=== PATIENT | female | born 1935 | race Two or more races ===

== ENCOUNTER 2022-09-28 15:32 | Inpatient (IN) | payer OTHER ==
[~2022-09-28] VITALS: Ht 152.4 cm; Wt 64.0 kg
[2022-10-05] MEDS ORDERED: PRAVASTATIN SOD40 MG PO (08:35)
[2022-10-05] MEDS ORDERED: MICARDIS40 MG PO (08:44)
[2022-10-10] MEDS ORDERED: NORVASC2.5 MG (08:37)
[2022-10-10] MEDS ORDERED: TELMISARTAN80 MG (08:37)
[2022-10-12] MEDS ORDERED: GABAPENTIN100 MG PO (13:15)
[2022-10-12] MEDS ORDERED: NORFLEX100MG PO (13:15)
[2022-10-12] MEDS ORDERED: OXYC1TAB9 PO (13:16)
[2022-10-12] MEDS ORDERED: XARELTO10 MG PO (13:17)
== END 2022-10-12 14:44 | DRG 470 ==
LOC: O/R 10-10 05:30 → SURG 10-10 05:30 → SURH 10-10 08:00 → SURG 10-10 10:35
PROVIDERS: ADMIT Orthopaedic Surgery; ATTEND Orthopaedic Surgery
PROC: 0SRC0J9 Replacement of Right Knee Joint with Synthetic Substitute, Cemented, Open Approach (ICD-10-PCS; principal; 2022-10-10 10:15)
DX: M17.11 Unilateral primary osteoarthritis, right knee (principal); D62 Acute posthemorrhagic anemia; M85.661 Other cyst of bone, right lower leg; I10 Essential (primary) hypertension; E78.5 Hyperlipidemia, unspecified; Z96.651 Presence of right artificial knee joint

== ENCOUNTER 2023-12-07 12:03 | Emergency (ER) | payer OTHER ==
[~2023-12-07] VITALS: Ht 152.4 cm; Wt 64.4 kg
[~2023-12-07 12:03] MED LIST: GABAPENTIN100 MG PO; MICARDIS40 MG PO; NORFLEX100MG PO; NORVASC2.5 MG; OXYC1TAB9 PO; PRAVASTATIN SOD40 MG PO; TELMISARTAN80 MG; XARELTO10 MG PO
[2023-12-07] MEDS ORDERED: HYOSCYAMINE SULFATE 0.125 MG TAB.SUBL SL STA (13:19)
[2023-12-07 13:43] LABS: HEMATOCRIT 36.6 % (36.0-45.00); HEMOGLOBIN 12.2 g/dL (12.0-15.00); MEAN CELL VOLUME 82.7 fL (80.00-100.00); MEAN CORPUSCULAR HEMOGLOBIN 27.5 pg (27.00-32.0); MEAN CORPUSCULAR HGB CONC 33.3 g/dl (32.0-36.0); PLATELET COUNT 228 K/uL (150-450); RED BLOOD COUNT 4.43 M/uL (4.00-6.00); RED CELL DISTRIBUTION WIDTH 14.1 % (11.5-14.5)
[2023-12-07 14:09] LABS: URINE APPEARANCE Cloudy; URINE BILIRRUBIN Negative (NEGATIVE); URINE BLOOD Trace; URINE COLOR Yellow; URINE GLUCOSE Negative (NEGATIVE); URINE KETONE Negative (NEGATIVE); URINE LEUKOCYTE Moderate; URINE NITRATE Negative; URINE PROTEIN Trace (NEGATIVE); URINE UROBILINOGEN 0.2 E.U./dl
[2023-12-07 14:13] LABS: ALBUMIN 3.9 gm/dL (3.4-5.0); BILIRUBIN TOTAL 0.44 mg/dL (0.3-1.2); BILIRUBIN,CONJUGATED 0.16 mg/dL (0.0-0.2); BILIRUBIN,UNCONJUGATED 0.28 mg/dL (0.0-0.6); CALCIUM 9.7 mg/dL (8.5-10.1); CREATININE SERUM 1.31 mg/dL (0.55-1.02); GFR 38.49; POTASSIUM 4.83 mEq/L (3.5-5.1); TOTAL PROTEIN 7.7 gm/dL (6.4-8.2)
[2023-12-07 14:13] LABS: URINE BACTERIA 2411.5 uL (0.0-1933); URINE EPITHELIAL CELLS 71.4 uL (0.0-38.8); URINE RBC 3.1 uL (0.0-20.8); URINE WBC 198.6 uL (0.0-23.2)
[2023-12-07 14:28] LABS: URINE CAST 0.28 uL (0.0-1.40)
== END 2023-12-07 16:27 | disposition home or self-care (01) ==
LOC: ER 12:03
PROVIDERS: General Practice
DX: R10.9 Unspecified abdominal pain (principal); Z91.041 Radiographic dye allergy status; Z88.8 Allergy status to other drugs, medicaments and biological substances; E11.9 Type 2 diabetes mellitus without complications; I10 Essential (primary) hypertension

== ENCOUNTER 2024-05-01 14:27 | Inpatient (IN) | payer OTHER ==
[~2024-05-01] VITALS: Ht 152.4 cm; Wt 63.0 kg
--- NOTE | 2024-05-01 14:34 | NUR ---
PACIENTE FEMENINA ALERTA Y ORIENTADA X3, REFIERE DOLOR ABDOMINAL Y EL EILEEN DE HOY 7 VOMITOS.
[2024-05-01] MEDS ORDERED: ONDANSETRON HCL 2 MG/ML VIAL IV ONE (15:15)
[2024-05-01] MEDS ORDERED: 0.9 % SODIUM CHLORIDE 500 ML IV ONE (15:15)
[2024-05-01] MEDS ORDERED: FAMOTIDINE/PF 20 MG/2 ML VIAL IV ONE (15:15)
--- NOTE | 2024-05-01 16:16 | NUR ---
PTE ALERTA Y ORIENTADA X3. GALINA GARCIA EDUCA A PTE SOBRE TRATAMIENTO MEDICO Y CHARLES DE MUESTRAS ORDENADAS POR MD, PTE REFIERE ENTENDER. SE REALIZA CHARLES DE MUESTRAS Y ADMINISTRACION DE MEDICAMENTOS BAJO MEDIDAS ASEPTICAS.
[2024-05-01 16:42] LABS: HEMOGLOBIN 11.5 g/dL (12.0-15.00); MEAN CELL VOLUME 85.1 fL (80.00-100.00); MEAN CORPUSCULAR HEMOGLOBIN 28.1 pg (27.00-32.0); PLATELET COUNT 251 K/uL (150-450); RED BLOOD COUNT 4.11 M/uL (4.00-6.00); RED CELL DISTRIBUTION WIDTH 14.1 % (11.5-14.5)
[2024-05-01 16:51] LABS: URINE APPEARANCE Clear; URINE BILIRRUBIN Negative (NEGATIVE); URINE BLOOD Small; URINE COLOR Yellow; URINE GLUCOSE Negative (NEGATIVE); URINE KETONE Negative (NEGATIVE); URINE LEUKOCYTE Moderate; URINE NITRATE Negative; URINE PROTEIN 30 (NEGATIVE); URINE UROBILINOGEN 0.2 E.U./dl
[2024-05-01 16:53] LABS: URINE BACTERIA 217.9 uL (0.0-1933); URINE EPITHELIAL CELLS 20.2 uL (0.0-38.8); URINE WBC 568.9 uL (0.0-23.2)
[2024-05-01 17:12] LABS: ALBUMIN 3.7 gm/dL (3.4-5.0); BILIRUBIN TOTAL 0.5 mg/dL (0.3-1.2); CALCIUM 9.5 mg/dL (8.5-10.1); CREATININE SERUM 1.71 mg/dL (0.55-1.02); GFR 28.24; GLOBULINA 4.1 G/DL (2.4-3.5); POTASSIUM 4.85 mEq/L (3.5-5.1); TOTAL PROTEIN 7.8 gm/dL (6.4-8.2)
[2024-05-01] MEDS ORDERED: CEFTRIAXONE SODIUM 2,000 MG in 0.9 % SODIUM CHLORIDE 100 ML IV SCH (18:52)
[2024-05-01] MEDS ORDERED: TAMSULOSIN HCL 0.4 MG CAP PO SCH (18:52)
[2024-05-01] MEDS ORDERED: ACETAMINOPHEN 500 MG GEL..CAP PO PRN (19:00)
[2024-05-01] MEDS ORDERED: 0.9 % SODIUM CHLORIDE 1,000 ML IV SCH (19:00)
[2024-05-01] MEDS ORDERED: KETOROLAC TROMETHAMINE 15 MG VIAL IU ONE (19:00)
[2024-05-01 21:01] LABS: INR 1.04; PARTIAL THROMBOPLASTIN TIME 28.8 SECONDS (22.0-34.0); PROTHROMBIN TIME 11.3 SECONDS (9.0-11.5)
[2024-05-01 21:02] LABS: MAGNESIUM 2.5 mg/dL (1.8-2.4); PHOSPHOROUS 2.9 mg/dL (2.5-4.9)
[2024-05-01 21:11] VITALS: BP 133/69; O2SAT 97
[2024-05-01 21:19] VITALS: BP 133/69
[2024-05-01 22:23] VITALS: BP 136/74; O2SAT 100
[2024-05-02 00:56] VITALS: BP 103/63; O2SAT 95
[2024-05-02 08:57] VITALS: BP 136/76; O2SAT 98
[2024-05-02] MEDS ORDERED: GABAPENTIN 100 MG CAPSULE PO SCH (09:00)
[2024-05-02] MEDS ORDERED: AMLODIPINE BESYLATE 5 MG TABLET PO SCH (09:00)
[2024-05-02 10:35] LABS: CALCIUM 9.1 mg/dL (8.5-10.1); CREATININE SERUM 1.73 mg/dL (0.55-1.02); GFR 27.86; POTASSIUM 4.91 mEq/L (3.5-5.1)
[2024-05-02] MEDS ORDERED: LACTOBACILLUS ACIDOPHILUS 1 CAP CAP PO SCH (17:00)
[2024-05-02] MEDS ORDERED: SIMVASTATIN 20 MG TABLET PO SCH (17:00)
[2024-05-02 17:35] VITALS: BP 123/67; O2SAT 98
[2024-05-02] MEDS ORDERED: IRON FUM,PS/FOLIC/BCOMP,C NO.9 1 CAP CAPSULE PO SCH (18:16)
[2024-05-03 00:35] VITALS: BP 160/70
[2024-05-03 08:50] VITALS: BP 120/67; O2SAT 99
[2024-05-03 17:14] VITALS: BP 121/71; O2SAT 96
[2024-05-04 00:57] VITALS: BP 134/86
[2024-05-04 08:31] VITALS: BP 125/70; O2SAT 98
[2024-05-04] MEDS ORDERED: TRAMADOL HCL 50 MG TABLET PO SCH (17:00)
[2024-05-04 17:11] VITALS: BP 125/70; O2SAT 96
[2024-05-04 19:17] LABS: BILIRUBIN TOTAL 0.35 mg/dL (0.3-1.2); CALCIUM 8.7 mg/dL (8.5-10.1); CREATININE SERUM 1.49 mg/dL (0.55-1.02); GFR 33.1; GLOBULINA 3.3 G/DL (2.4-3.5); POTASSIUM 4.35 mEq/L (3.5-5.1); TOTAL PROTEIN 6.3 gm/dL (6.4-8.2)
[2024-05-05 01:07] VITALS: BP 133/71
[2024-05-05 06:14] LABS: HEMATOCRIT 26.4 % (36.0-45.00); MEAN CELL VOLUME 85.6 fL (80.00-100.00); MEAN CORPUSCULAR HEMOGLOBIN 28.4 pg (27.00-32.0); MEAN CORPUSCULAR HGB CONC 33.1 g/dl (32.0-36.0); PLATELET COUNT 190 K/uL (150-450); RED BLOOD COUNT 3.09 M/uL (4.00-6.00); RED CELL DISTRIBUTION WIDTH 14.1 % (11.5-14.5)
[2024-05-05 06:29] LABS: HEMOGLOBIN 8.8 g/dL (12.0-15.00)
[2024-05-05 06:46] LABS: ALBUMIN 2.1 gm/dL (3.4-5.0); BILIRUBIN TOTAL 0.23 mg/dL (0.3-1.2); CALCIUM 6.6 mg/dL (8.5-10.1); CREATININE SERUM 1.58 mg/dL (0.55-1.02); GFR 30.94; GLOBULINA 2.3 G/DL (2.4-3.5); POTASSIUM 4.32 mEq/L (3.5-5.1); TOTAL PROTEIN 4.4 gm/dL (6.4-8.2)
[2024-05-05 08:14] VITALS: BP 133/65; O2SAT 97
[2024-05-05] MEDS ORDERED: ENOXAPARIN SODIUM 30 MG/0.3 ML SYRINGE SUBCUTANEO SCH (09:00)
[2024-05-05] MEDS ORDERED: SODIUM CHLORIDE 0.45 % 1,000 ML IV SCH (09:45)
[2024-05-05 17:00] VITALS: BP 121/61
[2024-05-05] MEDS ORDERED: BENZONATATE 100 MG CAPSULE PO SCH (17:00)
[2024-05-05] MEDS ORDERED: FLUTICASONE PROPIONATE 50 MCG SPRAY NASAL SCH (21:00)
[2024-05-05] MEDS ORDERED: LORATADINE 10 MG TABLET PO SCH (21:00)
[2024-05-06 00:32] VITALS: BP 130/71; O2SAT 96
[2024-05-06 08:08] LABS: HEMATOCRIT 29.9 % (36.0-45.00); HEMOGLOBIN 9.9 g/dL (12.0-15.00); MEAN CORPUSCULAR HEMOGLOBIN 28.1 pg (27.00-32.0); PLATELET COUNT 205 K/uL (150-450); RED BLOOD COUNT 3.52 M/uL (4.00-6.00); RED CELL DISTRIBUTION WIDTH 14.6 % (11.5-14.5)
[2024-05-06 08:10] VITALS: BP 155/80; O2SAT 97
[2024-05-06] MEDS ORDERED: FOLIC ACID 1 MG TABLET PO SCH (09:00)
[2024-05-06] MEDS ORDERED: TAMSULOSIN HCL 0.4 MG CAP PO SCH (09:00)
[2024-05-06 09:08] LABS: ALBUMIN 2.5 gm/dL (3.4-5.0); BILIRUBIN TOTAL 0.21 mg/dL (0.3-1.2); CALCIUM 8.4 mg/dL (8.5-10.1); POTASSIUM 5.19 mEq/L (3.5-5.1); TOTAL PROTEIN 5.5 gm/dL (6.4-8.2)
[2024-05-06 09:33] LABS: GFR 9.8
[2024-05-06 09:34] LABS: CREATININE SERUM 4.28 mg/dL (0.55-1.02)
[2024-05-06 16:26] VITALS: BP 151/76
[2024-05-07 01:18] VITALS: BP 122/67; O2SAT 96
[2024-05-07 08:44] LABS: HEMATOCRIT 30.2 % (36.0-45.00); HEMOGLOBIN 9.8 g/dL (12.0-15.00); MEAN CORPUSCULAR HEMOGLOBIN 27.8 pg (27.00-32.0); MEAN CORPUSCULAR HGB CONC 32.4 g/dl (32.0-36.0); PLATELET COUNT 189 K/uL (150-450); RED BLOOD COUNT 3.52 M/uL (4.00-6.00); RED CELL DISTRIBUTION WIDTH 14.2 % (11.5-14.5)
[2024-05-07 08:55] VITALS: BP 153/77; O2SAT 99
[2024-05-07 09:26] LABS: ALBUMIN 2.6 gm/dL (3.4-5.0); BILIRUBIN TOTAL 0.24 mg/dL (0.3-1.2); CALCIUM 8.3 mg/dL (8.5-10.1); POTASSIUM 5.3 mEq/L (3.5-5.1); TOTAL PROTEIN 5.6 gm/dL (6.4-8.2)
[2024-05-07 09:44] LABS: C-REACTIVE PROTEIN 7.62 MG/DL (0.00-0.29); GFR 6.25
[2024-05-07 09:45] LABS: CREATININE SERUM 6.32 mg/dL (0.55-1.02)
[2024-05-07] MEDS ORDERED: LEVALBUTEROL HCL 0.63 MG/3 ML SOLUTION IH STA (13:14)
[2024-05-07] MEDS ORDERED: LEVALBUTEROL HCL 0.63 MG/3 ML SOLUTION IH SCH (17:00)
[2024-05-07 22:05] VITALS: BP 162/83
[2024-05-07 23:11] LABS: PH,URINE 5.5 (5.0-8.0); URINE APPEARANCE Clear; URINE BILIRRUBIN Negative (NEGATIVE); URINE BLOOD Large; URINE COLOR Orange; URINE GLUCOSE Negative (NEGATIVE); URINE KETONE Trace (NEGATIVE); URINE LEUKOCYTE Small; URINE NITRATE Negative; URINE UROBILINOGEN 0.2 E.U./dl
[2024-05-07 23:16] LABS: URINE BACTERIA 79.3 uL (0.0-1933); URINE EPITHELIAL CELLS 13.6 uL (0.0-38.8); URINE RBC 108.8 uL (0.0-20.8); URINE WBC 32.1 uL (0.0-23.2)
[2024-05-07 23:20] LABS: URINE CAST 0.91 uL (0.0-1.40); URINE PROTEIN 100 (NEGATIVE)
[2024-05-08 02:53] VITALS: BP 125/72; O2SAT 98
[2024-05-08 06:23] LABS: HEMATOCRIT 28.2 % (36.0-45.00); HEMOGLOBIN 9.3 g/dL (12.0-15.00); MEAN CELL VOLUME 84.6 fL (80.00-100.00); MEAN CORPUSCULAR HEMOGLOBIN 27.9 pg (27.00-32.0); PLATELET COUNT 226 K/uL (150-450); RED BLOOD COUNT 3.33 M/uL (4.00-6.00); RED CELL DISTRIBUTION WIDTH 14.3 % (11.5-14.5)
[2024-05-08 06:45] LABS: ALBUMIN 2.4 gm/dL (3.4-5.0); CALCIUM 8.4 mg/dL (8.5-10.1); MAGNESIUM 2.1 mg/dL (1.8-2.4); PHOSPHOROUS 4.1 mg/dL (2.5-4.9); POTASSIUM 5.19 mEq/L (3.5-5.1)
[2024-05-08 06:47] LABS: GFR 10.81
[2024-05-08 06:48] LABS: CREATININE SERUM 3.93 mg/dL (0.55-1.02)
[2024-05-08 08:33] VITALS: BP 131/69
[2024-05-08] MEDS ORDERED: IPRATROPIUM BROMIDE 0.5 MG/2.5 ML AMPUL.NEB IH SCH (12:00)
[2024-05-08] MEDS ORDERED: METHYLPREDNISOLONE SOD SUCC 40 MG VIAL IV SCH (13:00)
[2024-05-08 18:11] VITALS: BP 144/76; O2SAT 97
[2024-05-08] MEDS ORDERED: ACETAMINOPHEN 500 MG GEL..CAP PO PRN (22:00)
[2024-05-09 01:30] VITALS: BP 133/77; O2SAT 94
[2024-05-09 06:47] LABS: ALBUMIN 2.7 gm/dL (3.4-5.0); CALCIUM 8.5 mg/dL (8.5-10.1); CREATININE SERUM 1.84 mg/dL (0.55-1.02); GFR 25.95; PHOSPHOROUS 2.6 mg/dL (2.5-4.9); POTASSIUM 4.82 mEq/L (3.5-5.1)
[2024-05-09 08:36] VITALS: BP 131/67
[2024-05-09 16:11] VITALS: BP 126/64
[2024-05-10 01:33] VITALS: BP 145/71; O2SAT 96
[2024-05-10 05:40] LABS: HEMATOCRIT 28.6 % (36.0-45.00); MEAN CELL VOLUME 83.7 fL (80.00-100.00); MEAN CORPUSCULAR HEMOGLOBIN 27.7 pg (27.00-32.0); MEAN CORPUSCULAR HGB CONC 33.1 g/dl (32.0-36.0); PLATELET COUNT 300 K/uL (150-450); RED BLOOD COUNT 3.42 M/uL (4.00-6.00); RED CELL DISTRIBUTION WIDTH 14.7 % (11.5-14.5)
[2024-05-10 06:27] LABS: ALBUMIN 2.8 gm/dL (3.4-5.0); BILIRUBIN TOTAL 0.25 mg/dL (0.3-1.2); CALCIUM 8.6 mg/dL (8.5-10.1); CREATININE SERUM 1.53 mg/dL (0.55-1.02); GFR 32.11; GLOBULINA 3.2 G/DL (2.4-3.5); POTASSIUM 5.15 mEq/L (3.5-5.1)
[2024-05-10 06:33] LABS: HEMOGLOBIN 9.5 g/dL (12.0-15.00)
[2024-05-10 08:52] VITALS: BP 144/75; O2SAT 97
[2024-05-10 14:00] VITALS: BP 138/72; O2SAT 92
[2024-05-10] MEDS ORDERED: LEVALBUTEROL HCL 0.63 MG/3 ML SOLUTION IH SCH (17:00)
[2024-05-11 01:36] VITALS: BP 116/54; O2SAT 97
[2024-05-11 10:59] VITALS: BP 154/75; O2SAT 98
[2024-05-11 17:14] VITALS: BP 151/72
[2024-05-12 01:27] VITALS: BP 130/60; O2SAT 97
[2024-05-12 06:36] LABS: HEMATOCRIT 29.7 % (36.0-45.00); HEMOGLOBIN 9.9 g/dL (12.0-15.00); MEAN CELL VOLUME 83.5 fL (80.00-100.00); MEAN CORPUSCULAR HEMOGLOBIN 27.8 pg (27.00-32.0); MEAN CORPUSCULAR HGB CONC 33.3 g/dl (32.0-36.0); PLATELET COUNT 345 K/uL (150-450); RED BLOOD COUNT 3.56 M/uL (4.00-6.00); RED CELL DISTRIBUTION WIDTH 14.7 % (11.5-14.5)
[2024-05-12 06:52] LABS: ERYTHROCYTE SEDIMENTATION RATE 17 mm/hr
[2024-05-12 07:23] LABS: CALCIUM 8.4 mg/dL (8.5-10.1); CREATININE SERUM 1.3 mg/dL (0.55-1.02); GFR 38.75; PHOSPHOROUS 2.8 mg/dL (2.5-4.9); POTASSIUM 4.34 mEq/L (3.5-5.1)
[2024-05-12 07:30] LABS: C-REACTIVE PROTEIN 1.07 MG/DL (0.00-0.29)
[2024-05-12 08:32] VITALS: BP 155/65
[2024-05-12 16:57] VITALS: BP 177/74
[2024-05-12] MEDS ORDERED: METHYLPREDNISOLONE SOD SUCC 40 MG VIAL IV SCH (21:00)
[2024-05-12 22:57] LABS: ABG PH 7.449 (7.35-7.45); ABG PO2 71.5 mmHg (80-100); ABG pCO2 33.7 mmHg (35-45); BASE EXCESS -0.4 mmol/l; BICARBONATE 22.8 mmol/l (23-25); SaO2 94.9 %; Tco2 23.9 mmol/l
[2024-05-12 22:58] LABS: allen test SATISFACTORY
[2024-05-12 23:10] LABS: puncture site BRADIAL RIGHT
[2024-05-12 23:11] LABS: o2 21 %
[2024-05-12 23:45] VITALS: BP 131/63; O2SAT 97
[2024-05-13 08:00] VITALS: BP 141/81
[2024-05-13] MEDS ORDERED: AMLODIPINE BESYL5 MG PO (16:07)
[2024-05-13] MEDS ORDERED: TAMS0.4C PO (16:07)
[2024-05-13] MEDS ORDERED: INTEGRA PLUS C1 EACH PO (16:07)
[2024-05-13] MEDS ORDERED: LEVALBUTER0.31 MG/3 IH (16:07)
[2024-05-13] MEDS ORDERED: SYMBICORT 16010.2 GM IH (16:07)
[2024-05-13] MEDS ORDERED: IPRATROPIU0.2 MG/1 M IH (16:07)
[2024-05-13 18:14] VITALS: BP 160/80; O2SAT 98
== END 2024-05-13 21:40 | disposition home or self-care (01) | DRG 660 ==
LOC: ER 14:29 → MEDJ 20:00
PROVIDERS: General Practice; Internal Medicine; Internal Medicine Geriatric Medicine; Internal Medicine Nephrology; Nurse Practitioner Family; Urology; ADMIT Internal Medicine; ATTEND Internal Medicine
PROC: BW21ZZZ Computerized Tomography (CT Scan) of Abdomen and Pelvis (ICD-10-PCS; 2024-05-01)
PROC: BW30YZZ Magnetic Resonance Imaging (MRI) of Abdomen using Other Contrast (ICD-10-PCS; 2024-05-06)
PROC: BW21ZZZ Computerized Tomography (CT Scan) of Abdomen and Pelvis (ICD-10-PCS; 2024-05-06)
PROC: 0T788DZ Dilation of Bilateral Ureters with Intraluminal Device, Via Natural or Artificial Opening Endoscopic (ICD-10-PCS; principal; 2024-05-07 13:00)
DX: N39.0 Urinary tract infection, site not specified (principal); J45.901 Unspecified asthma with (acute) exacerbation; N17.9 Acute kidney failure, unspecified; N13.8 Other obstructive and reflux uropathy; N13.2 Hydronephrosis with renal and ureteral calculous obstruction; E78.5 Hyperlipidemia, unspecified; I12.9 Hypertensive chronic kidney disease with stage 1 through stage 4 chronic kidney disease, or unspecified chronic kidney disease; N18.30 Chronic kidney disease, stage 3 unspecified; D63.1 Anemia in chronic kidney disease
CPT/HCPCS: 74182

== ENCOUNTER 2024-05-21 11:57 | Inpatient (IN) | payer OTHER ==
[~2024-05-21] VITALS: Ht 152.4 cm; Wt 61.7 kg
[~2024-05-21 11:57] MED LIST changes: +AMLODIPINE BESYL5 MG PO; +INTEGRA PLUS C1 EACH PO; +IPRATROPIU0.2 MG/1 M IH; +LEVALBUTER0.31 MG/3 IH; +SYMBICORT 16010.2 GM IH; +TAMS0.4C PO
--- NOTE | 2024-05-21 12:33 | NUR ---
PTE ALERTA Y ORIENTADA X3 REFEIRE DOLOR EN AMBOS FLANCOS, EPSCIALMENTE EN EL LADO DERECHO. PTE TIENE DOUBLE J OPERADA POR DR ANGELA. SE LE THOMPSON S/V Y SE UBICA
[2024-05-21] MEDS ORDERED: 0.9 % SODIUM CHLORIDE 1,000 ML IV STA (13:37)
[2024-05-21] MEDS ORDERED: KETOROLAC TROMETHAMINE 60 MG VIAL IM STA (13:38)
--- NOTE | 2024-05-21 13:55 | NUR ---
PTE EVALUADA POR EL DR. CHUN. GALINA POSEYA, CHARLES MUESTRAS DE LAB Y ADMINISTRA MEDICAMENTO SERGIO ORDEN MEDICA BAJO MEDIDAS ASEPTICAS. SE NOTIFICA CT PENDINTE.
[2024-05-21 14:15] LABS: PH,URINE 5.5 (5.0-8.0); URINE APPEARANCE Cloudy; URINE BILIRRUBIN Negative (NEGATIVE); URINE BLOOD Large; URINE COLOR Yellow; URINE GLUCOSE Negative (NEGATIVE); URINE KETONE Negative (NEGATIVE); URINE LEUKOCYTE Moderate; URINE NITRATE Negative; URINE UROBILINOGEN 0.2 E.U./dl
[2024-05-21 14:16] LABS: URINE BACTERIA 2049.9 uL (0.0-1933); URINE EPITHELIAL CELLS 39.1 uL (0.0-38.8); URINE RBC 507.6 uL (0.0-20.8); URINE WBC 201.2 uL (0.0-23.2)
[2024-05-21 14:26] LABS: HEMATOCRIT 34.2 % (36.0-45.00); HEMOGLOBIN 11.2 g/dL (12.0-15.00); MEAN CELL VOLUME 83.8 fL (80.00-100.00); MEAN CORPUSCULAR HEMOGLOBIN 27.5 pg (27.00-32.0); MEAN CORPUSCULAR HGB CONC 32.8 g/dl (32.0-36.0); PLATELET COUNT 259 K/uL (150-450); RED BLOOD COUNT 4.08 M/uL (4.00-6.00); RED CELL DISTRIBUTION WIDTH 16.1 % (11.5-14.5)
[2024-05-21 14:47] LABS: ALBUMIN 3.6 gm/dL (3.4-5.0); BILIRUBIN TOTAL 0.46 mg/dL (0.3-1.2); BILIRUBIN,CONJUGATED 0.14 mg/dL (0.0-0.2); BILIRUBIN,UNCONJUGATED 0.32 mg/dL (0.0-0.6); CALCIUM 9.1 mg/dL (8.5-10.1); CREATININE SERUM 1.81 mg/dL (0.55-1.02); GFR 26.45; POTASSIUM 4.2 mEq/L (3.5-5.1); TOTAL PROTEIN 7.8 gm/dL (6.4-8.2)
[2024-05-21 14:47] LABS: URINE PROTEIN 100 (NEGATIVE)
[2024-05-21] MEDS ORDERED: CEFTRIAXONE SODIUM 1,000 MG VIAL IV STA (15:56)
[2024-05-21] MEDS ORDERED: PROMETHAZINE HCL 25 MG/ML AMPUL IM ONE (20:00)
[2024-05-21] MEDS ORDERED: MEPERIDINE HCL/PF 25 MG/ML VIAL IM ONE (20:00)
[2024-05-21] MEDS ORDERED: 0.9 % SODIUM CHLORIDE 1,000 ML IV SCH (20:15)
[2024-05-21] MEDS ORDERED: MORPHINE SULFATE 2 MG/ML CARTRIDGE IV PRN (20:30)
[2024-05-21] MEDS ORDERED: ACETAMINOPHEN 500 MG GEL..CAP PO PRN (20:30)
[2024-05-21 21:19] LABS: INR 1.01; PARTIAL THROMBOPLASTIN TIME 28.7 SECONDS (22.0-34.0)
[2024-05-21 23:00] VITALS: BP 128/72; O2SAT 96
[2024-05-22 05:55] VITALS: BP 146/75; O2SAT 98
[2024-05-22] MEDS ORDERED: CEFTRIAXONE SODIUM 2,000 MG in 0.9 % SODIUM CHLORIDE 100 ML IV SCH (09:00)
[2024-05-22] MEDS ORDERED: AMLODIPINE BESYLATE 5 MG TABLET PO SCH (09:00)
[2024-05-22] MEDS ORDERED: IRON FUM,PS/FOLIC/BCOMP,C NO.9 1 CAP CAPSULE PO SCH (09:00)
[2024-05-22] MEDS ORDERED: TAMSULOSIN HCL 0.4 MG CAP PO SCH (09:00)
[2024-05-22 09:18] VITALS: BP 143/80
[2024-05-22] MEDS ORDERED: MEROPENEM 500 MG/VIAL VIAL IV NR (14:00)
[2024-05-22] MEDS ORDERED: LACTOBACILLUS ACIDOPHILUS 1 CAP CAP PO SCH (17:00)
[2024-05-22 18:19] VITALS: BP 150/84; O2SAT 96
[2024-05-22] MEDS ORDERED: MEROPENEM 500 MG/VIAL VIAL IV SCH (21:00)
[2024-05-23 01:56] VITALS: BP 134/64
[2024-05-23 08:00] VITALS: BP 145/75; O2SAT 96
[2024-05-23] MEDS ORDERED: TRAMADOL HCL 50 MG TABLET PO STA (10:33)
[2024-05-23] MEDS ORDERED: KETOROLAC TROMETHAMINE 60 MG VIAL IM ONE (10:45)
[2024-05-23] MEDS ORDERED: LEVALBUTEROL HCL 0.63 MG/3 ML SOLUTION IH SCH (13:00)
[2024-05-23 16:47] LABS: ALBUMIN 2.9 gm/dL (3.4-5.0); BILIRUBIN TOTAL 0.3 mg/dL (0.3-1.2); CALCIUM 8.6 mg/dL (8.5-10.1); CREATININE SERUM 1.96 mg/dL (0.55-1.02); GFR 24.12; GLOBULINA 2.9 G/DL (2.4-3.5); POTASSIUM 4.88 mEq/L (3.5-5.1); TOTAL PROTEIN 5.8 gm/dL (6.4-8.2)
[2024-05-23] MEDS ORDERED: BUDESONIDE 0.5 MG/2 ML AMPUL.NEB IH SCH (17:00)
[2024-05-23] MEDS ORDERED: TRAMADOL HCL 50 MG TABLET PO PRN (18:30)
[2024-05-23 20:16] VITALS: BP 104/54
[2024-05-24 00:32] VITALS: BP 145/78; O2SAT 98
[2024-05-24 09:04] LABS: ALBUMIN 2.7 gm/dL (3.4-5.0); BILIRUBIN TOTAL 0.3 mg/dL (0.3-1.2); CALCIUM 8.3 mg/dL (8.5-10.1); CREATININE SERUM 2.19 mg/dL (0.55-1.02); GFR 21.22; GLOBULINA 2.6 G/DL (2.4-3.5); POTASSIUM 4.8 mEq/L (3.5-5.1); TOTAL PROTEIN 5.3 gm/dL (6.4-8.2)
[2024-05-24] MEDS ORDERED: SODIUM CHLORIDE 0.45 % 1,000 ML IV SCH (09:15)
[2024-05-24] MEDS ORDERED: MORPHINE SULFATE 4 MG/ML CARTRIDGE IV PRN (09:15)
[2024-05-24 09:41] VITALS: BP 152/72
[2024-05-24] MEDS ORDERED: PIPERACILLIN/TAZOBACTAM SODIUM 3.375 GM VIAL IV SCH (12:00)
[2024-05-24 16:48] VITALS: BP 146/77
[2024-05-24] MEDS ORDERED: ORPHENADRINE CITRATE 100 MG TABLET PO SCH (17:00)
[2024-05-24] MEDS ORDERED: PIPERACILLIN/TAZOBACTAM SODIUM 2.25 GM VIAL IV SCH (18:00)
[2024-05-25 03:28] VITALS: BP 132/71; O2SAT 99
[2024-05-25 09:05] VITALS: BP 139/77
[2024-05-25 16:59] VITALS: BP 138/79
[2024-05-26 02:36] VITALS: BP 140/80; O2SAT 94
[2024-05-26 07:04] LABS: HEMATOCRIT 27.2 % (36.0-45.00); MEAN CELL VOLUME 84.3 fL (80.00-100.00); MEAN CORPUSCULAR HGB CONC 32.8 g/dl (32.0-36.0); RED BLOOD COUNT 3.22 M/uL (4.00-6.00); RED CELL DISTRIBUTION WIDTH 15.6 % (11.5-14.5)
[2024-05-26 07:09] LABS: ALBUMIN 2.9 gm/dL (3.4-5.0); BILIRUBIN TOTAL 0.84 mg/dL (0.3-1.2); CALCIUM 8.2 mg/dL (8.5-10.1); GFR 14.76; GLOBULINA 2.6 G/DL (2.4-3.5); TOTAL PROTEIN 5.5 gm/dL (6.4-8.2)
[2024-05-26 07:15] LABS: C-REACTIVE PROTEIN 4.86 MG/DL (0.00-0.29); MEAN CORPUSCULAR HEMOGLOBIN 27.6 pg (27.00-32.0); POTASSIUM 5.5 mEq/L (3.5-5.1)
[2024-05-26 07:16] LABS: HEMOGLOBIN 8.9 g/dL (12.0-15.00); PLATELET COUNT 129 K/uL (150-450)
[2024-05-26 07:30] LABS: ERYTHROCYTE SEDIMENTATION RATE 72 mm/hr
[2024-05-26 11:00] VITALS: BP 134/73; O2SAT 98
[2024-05-26] MEDS ORDERED: SOD FERRIC GLUC COMPLX/SUCROSE 62.5 MG/5 ML AMPUL IV NR (13:00)
[2024-05-26] MEDS ORDERED: PANTOPRAZOLE SODIUM 40 MG/VIAL VIAL IV NR (13:00)
[2024-05-26] MEDS ORDERED: ONDANSETRON HCL 2 MG/ML VIAL IV PRN (14:15)
[2024-05-26] MEDS ORDERED: SODIUM POLYSTYRENE SULFONATE 30G/8 TSP PO SCH (17:00)
[2024-05-26 18:26] VITALS: BP 159/81; O2SAT 98
[2024-05-26] MEDS ORDERED: DIATRIZOATE MEGLUMINE, SODIUM 30 ML BOTTLE PO ONE (21:00)
[2024-05-27 00:22] VITALS: BP 154/80; O2SAT 96
[2024-05-27] MEDS ORDERED: 0.9 % SODIUM CHLORIDE 1,000 ML IV SCH (05:45)
[2024-05-27] MEDS ORDERED: ALBUMIN HUMAN 250 ML IV ONE (06:00)
[2024-05-27 07:44] LABS: URINE APPEARANCE Turbid; URINE BILIRRUBIN Negative (NEGATIVE); URINE BLOOD Large; URINE COLOR Orange; URINE GLUCOSE Negative (NEGATIVE); URINE KETONE Negative (NEGATIVE); URINE LEUKOCYTE Large; URINE NITRATE Negative; URINE UROBILINOGEN 0.2 E.U./dl
[2024-05-27 07:48] LABS: URINE BACTERIA 3037.8 uL (0.0-1933); URINE WBC 667.6 uL (0.0-23.2)
[2024-05-27 08:16] LABS: URINE CAST 0.83 uL (0.0-1.40); URINE PROTEIN 100 (NEGATIVE); URINE RBC > 10558.9 uL (0.0-20.8)
[2024-05-27] MEDS ORDERED: PANTOPRAZOLE SODIUM 40 MG/VIAL VIAL IV SCH (09:00)
[2024-05-27] MEDS ORDERED: SOD FERRIC GLUC COMPLX/SUCROSE 62.5 MG in 0.9 % SODIUM CHLORIDE 50 ML IV SCH (09:00)
[2024-05-27] MEDS ORDERED: MORPHINE SULFATE 4 MG/ML CARTRIDGE IV PRN (09:00)
[2024-05-27] MEDS ORDERED: MORPHINE SULFATE 4 MG/ML VIAL IV PRN (09:00)
[2024-05-27] MEDS ORDERED: ALBUMIN HUMAN-25 0.25GM/ML (50ML) VIAL IV NR (09:00)
[2024-05-27 09:27] VITALS: BP 138/71; O2SAT 96
[2024-05-27 10:53] LABS: HEMATOCRIT 27.4 % (36.0-45.00); MEAN CELL VOLUME 84.5 fL (80.00-100.00); MEAN CORPUSCULAR HEMOGLOBIN 27.6 pg (27.00-32.0); MEAN CORPUSCULAR HGB CONC 32.7 g/dl (32.0-36.0); RED BLOOD COUNT 3.24 M/uL (4.00-6.00); RED CELL DISTRIBUTION WIDTH 15.6 % (11.5-14.5)
[2024-05-27 10:58] LABS: PLATELET COUNT 97 K/uL (150-450)
[2024-05-27 10:59] LABS: INR 1.05; PARTIAL THROMBOPLASTIN TIME 23.3 SECONDS (22.0-34.0); PROTHROMBIN TIME 11.4 SECONDS (9.0-11.5)
[2024-05-27 11:16] LABS: ALBUMIN 3.1 gm/dL (3.4-5.0); BILIRUBIN TOTAL 0.86 mg/dL (0.3-1.2); CALCIUM 8.9 mg/dL (8.5-10.1); GFR 9.22; GLOBULINA 2.8 G/DL (2.4-3.5); POTASSIUM 4.95 mEq/L (3.5-5.1); TOTAL PROTEIN 5.9 gm/dL (6.4-8.2)
[2024-05-27 11:34] LABS: CREATININE SERUM 4.51 mg/dL (0.55-1.02)
[2024-05-27] MEDS ORDERED: BUPIVACAINE HCL 30 ML VIAL IJ ONE (13:45)
[2024-05-27] MEDS ORDERED: IOVERSOL 320 MG/ML - 50 ML VIAL IV ONE (13:45)
[2024-05-27] MEDS ORDERED: PIPERACILLIN/TAZOBACTAM SODIUM 3.375 GM VIAL IV ONE (13:45)
[2024-05-27] MEDS ORDERED: MORPHINE SULFATE 4 MG/ML VIAL IV ONE (16:30)
[2024-05-27 16:33] LABS: ALKALINE PHOSPHATASE 218 U/L (50-136); ALT/SGPT 53 U/L (12-78); AMYLASE 84 U/L (25-115); AST/SGOT 63 U/L (15-37); LIPASE 52 U/L (13-75)
[2024-05-27 16:36] LABS: CALCIUM 8.5 mg/dL (8.5-10.1); GFR 8.73; POTASSIUM 5.14 mEq/L (3.5-5.1)
[2024-05-27 17:12] LABS: CREATININE SERUM 4.73 mg/dL (0.55-1.02)
[2024-05-27 18:08] VITALS: BP 140/80; O2SAT 98
[2024-05-27 20:20] LABS: HEMATOCRIT 24.4 % (36.0-45.00); MEAN CELL VOLUME 83.9 fL (80.00-100.00); MEAN CORPUSCULAR HEMOGLOBIN 28.1 pg (27.00-32.0); MEAN CORPUSCULAR HGB CONC 33.6 g/dl (32.0-36.0); RED BLOOD COUNT 2.91 M/uL (4.00-6.00); RED CELL DISTRIBUTION WIDTH 16.3 % (11.5-14.5)
[2024-05-27 20:21] LABS: HEMOGLOBIN 8.2 g/dL (12.0-15.00); PLATELET COUNT 109 K/uL (150-450)
[2024-05-27] MEDS ORDERED: FUROsemide 20 MG/2 ML VIAL IV SCH (20:45)
[2024-05-28 01:28] VITALS: BP 150/79; O2SAT 98
[2024-05-28 10:45] LABS: HEMATOCRIT 30.5 % (36.0-45.00); MEAN CELL VOLUME 85.2 fL (80.00-100.00); MEAN CORPUSCULAR HGB CONC 32.9 g/dl (32.0-36.0); RED BLOOD COUNT 3.58 M/uL (4.00-6.00); RED CELL DISTRIBUTION WIDTH 15.7 % (11.5-14.5)
[2024-05-28 10:46] LABS: MEAN CORPUSCULAR HEMOGLOBIN 27.9 pg (27.00-32.0); PLATELET COUNT 95 K/uL (150-450)
[2024-05-28 11:53] LABS: INR 1.16; PARTIAL THROMBOPLASTIN TIME 32.6 SECONDS (22.0-34.0); PROTHROMBIN TIME 12.5 SECONDS (9.0-11.5)
[2024-05-28] MEDS ORDERED: levoFLOXacin IN DEXTROSE 5 % 5 MG/ML PIGGYBAG IV NR (14:00)
[2024-05-28 16:53] VITALS: BP 158/83; O2SAT 96
[2024-05-28] MEDS ORDERED: MIDAZOLAM HCL 2 MG/2 ML VIAL IV PUSH ONE (19:00)
[2024-05-28] MEDS ORDERED: fentaNYL CITRATE 50 MCG/ML AMPUL IV PUSH ONE (19:00)
[2024-05-28] MEDS ORDERED: METRONIDAZOLE/SODIUM CHLORIDE 500 MG/100 ML PIGGYBACK IV SCH (21:00)
[2024-05-28] MEDS ORDERED: AMPICILLIN SODIUM 2,000 MG VIAL IV SCH (21:00)
[2024-05-28 22:23] LABS: URINE APPEARANCE BLOODY; URINE BILIRRUBIN LARGE (NEGATIVE); URINE COLOR RED; URINE GLUCOSE 250 MG/DL (NEGATIVE); URINE KETONE 40 (NEGATIVE)
[2024-05-28 22:24] LABS: PH,URINE 7.5; URINE BLOOD LARGE; URINE PROTEIN >=300 (NEGATIVE)
[2024-05-28 22:25] LABS: URINE NITRATE POSITIVE; URINE UROBILINOGEN >= 8.0 E.U./dl
[2024-05-28 22:30] LABS: URINE EPITHELIAL CELLS 0-4 /HPF; URINE LEUKOCYTE LARGE; URINE RBC LOADED /HPF; URINE WBC 0-2 /hpf
[2024-05-28 22:31] LABS: URINE BACTERIA FEW; URINE MUCUS SCANT
[2024-05-29 02:40] VITALS: BP 169/86; O2SAT 95
[2024-05-29 05:49] LABS: HEMATOCRIT 27.8 % (36.0-45.00); HEMOGLOBIN 9.3 g/dL (12.0-15.00); MEAN CELL VOLUME 84.7 fL (80.00-100.00); MEAN CORPUSCULAR HEMOGLOBIN 28.3 pg (27.00-32.0); MEAN CORPUSCULAR HGB CONC 33.3 g/dl (32.0-36.0); RED BLOOD COUNT 3.28 M/uL (4.00-6.00); RED CELL DISTRIBUTION WIDTH 15.6 % (11.5-14.5)
[2024-05-29 06:34] LABS: PLATELET COUNT 99 K/uL (150-450)
[2024-05-29 07:16] LABS: ALBUMIN 2.7 gm/dL (3.4-5.0); BILIRUBIN TOTAL 1.19 mg/dL (0.3-1.2); CALCIUM 8.2 mg/dL (8.5-10.1); GLOBULINA 2.7 G/DL (2.4-3.5); POTASSIUM 4.29 mEq/L (3.5-5.1); TOTAL PROTEIN 5.4 gm/dL (6.4-8.2)
[2024-05-29 07:43] LABS: GFR 5.05
[2024-05-29 07:47] LABS: CREATININE SERUM 7.6 mg/dL (0.55-1.02)
[2024-05-29 08:36] VITALS: BP 167/90; O2SAT 94
[2024-05-29] MEDS ORDERED: ONDANSETRON HCL 2 MG/ML VIAL IV SCH (12:00)
[2024-05-29 18:25] VITALS: BP 153/74; O2SAT 96
[2024-05-30 00:27] VITALS: BP 160/70; O2SAT 98
[2024-05-30 04:56] LABS: FIBRINOGEN 589 mg/dL (187.0-446.0)
[2024-05-30 07:21] LABS: COL ADP >300 SECONDS (56-102); COL EPI 192 SECONDS (82-175)
[2024-05-30 08:53] VITALS: BP 142/76; O2SAT 97
[2024-05-30] MEDS ORDERED: levoFLOXacin IN DEXTROSE 5 % 500MG/100ML PIGGYBAG IV SCH (12:00)
[2024-05-30 12:03] LABS: FOLIC ACID > 20.00 ng/ml (4.78-20)
[2024-05-30 13:15] LABS: HEMATOCRIT 27.8 % (36.0-45.00); HEMOGLOBIN 9.6 g/dL (12.0-15.00); MEAN CELL VOLUME 83.7 fL (80.00-100.00); MEAN CORPUSCULAR HEMOGLOBIN 28.9 pg (27.00-32.0); MEAN CORPUSCULAR HGB CONC 34.5 g/dl (32.0-36.0); PLATELET COUNT 194 K/uL (150-450); RED BLOOD COUNT 3.32 M/uL (4.00-6.00); RED CELL DISTRIBUTION WIDTH 16.3 % (11.5-14.5)
[2024-05-30] MEDS ORDERED: HEPARIN SODIUM,PORCINE 5,000 UNITS/ML VIAL IV ONE (15:15)
[2024-05-30 16:48] VITALS: BP 128/72
[2024-05-30 21:37] LABS: HEMATOCRIT 31.6 % (36.0-45.00); HEMOGLOBIN 10.7 g/dL (12.0-15.00); MEAN CELL VOLUME 83.7 fL (80.00-100.00); MEAN CORPUSCULAR HEMOGLOBIN 28.3 pg (27.00-32.0); MEAN CORPUSCULAR HGB CONC 33.9 g/dl (32.0-36.0); PLATELET COUNT 219 K/uL (150-450); RED BLOOD COUNT 3.77 M/uL (4.00-6.00); RED CELL DISTRIBUTION WIDTH 16.1 % (11.5-14.5)
[2024-05-31 02:50] VITALS: BP 147/67; O2SAT 98
[2024-05-31 08:34] LABS: HEMATOCRIT 27.1 % (36.0-45.00); HEMOGLOBIN 9.5 g/dL (12.0-15.00); MEAN CELL VOLUME 83.6 fL (80.00-100.00); MEAN CORPUSCULAR HEMOGLOBIN 29.5 pg (27.00-32.0); MEAN CORPUSCULAR HGB CONC 35.3 g/dl (32.0-36.0); PLATELET COUNT 194 K/uL (150-450); RED BLOOD COUNT 3.24 M/uL (4.00-6.00); RED CELL DISTRIBUTION WIDTH 15.4 % (11.5-14.5)
[2024-05-31 08:57] LABS: ALBUMIN 2.4 gm/dL (3.4-5.0); CALCIUM 8.1 mg/dL (8.5-10.1); GFR 5.73; PHOSPHOROUS 4.8 mg/dL (2.5-4.9); POTASSIUM 3.29 mEq/L (3.5-5.1)
[2024-05-31 09:37] VITALS: BP 120/63; O2SAT 96
[2024-05-31 10:10] LABS: CREATININE SERUM 6.81 mg/dL (0.55-1.02)
[2024-05-31 17:49] VITALS: BP 161/60; O2SAT 99
[2024-06-01 02:47] VITALS: BP 150/81; O2SAT 94
[2024-06-01 09:23] LABS: HEMATOCRIT 31.7 % (36.0-45.00); HEMOGLOBIN 10.8 g/dL (12.0-15.00); MEAN CELL VOLUME 83.8 fL (80.00-100.00); MEAN CORPUSCULAR HEMOGLOBIN 28.6 pg (27.00-32.0); MEAN CORPUSCULAR HGB CONC 34.2 g/dl (32.0-36.0); PLATELET COUNT 248 K/uL (150-450); RED BLOOD COUNT 3.79 M/uL (4.00-6.00); RED CELL DISTRIBUTION WIDTH 15.6 % (11.5-14.5)
[2024-06-01 09:57] VITALS: BP 157/80; O2SAT 98
[2024-06-01] MEDS ORDERED: MEPERIDINE HCL/PF 25 MG/ML VIAL IV PRN (13:15)
[2024-06-01 16:58] VITALS: BP 158/88; O2SAT 93
[2024-06-02 02:55] VITALS: BP 147/81; O2SAT 96
[2024-06-02 09:13] VITALS: BP 158/85
[2024-06-02] MEDS ORDERED: AMINO ACIDS 4.25 %/DEXTROSE 5% 1,000 ML PERIFERAL SCH (17:00)
[2024-06-02 17:56] VITALS: BP 168/87
[2024-06-02 18:39] LABS: CHOL HDL RATIO 1.6 (0-5.0)
[2024-06-02] MEDS ORDERED: PIPERACILLIN/TAZOBACTAM SODIUM 2.25 GM VIAL IV SCH (21:00)
[2024-06-03 00:59] VITALS: BP 160/83; O2SAT 99
[2024-06-03 06:28] LABS: HEMATOCRIT 30.6 % (36.0-45.00); HEMOGLOBIN 10.6 g/dL (12.0-15.00); MEAN CELL VOLUME 82.8 fL (80.00-100.00); MEAN CORPUSCULAR HEMOGLOBIN 28.6 pg (27.00-32.0); MEAN CORPUSCULAR HGB CONC 34.5 g/dl (32.0-36.0); PLATELET COUNT 292 K/uL (150-450); RED BLOOD COUNT 3.69 M/uL (4.00-6.00); RED CELL DISTRIBUTION WIDTH 15.9 % (11.5-14.5)
[2024-06-03 06:41] LABS: ALBUMIN 2.8 gm/dL (3.4-5.0); BILIRUBIN TOTAL 0.67 mg/dL (0.3-1.2); CALCIUM 8.2 mg/dL (8.5-10.1); GLOBULINA 2.9 G/DL (2.4-3.5); PHOSPHOROUS 2.1 mg/dL (2.5-4.9); TOTAL PROTEIN 5.7 gm/dL (6.4-8.2)
[2024-06-03 07:09] LABS: GFR 10.29
[2024-06-03 07:11] LABS: CREATININE SERUM 4.1 mg/dL (0.55-1.02); POTASSIUM 2.61 mEq/L (3.5-5.1)
[2024-06-03] MEDS ORDERED: POTASSIUM CHLORIDE/D5-0.45NACL 1,000 ML IV SCH (07:30)
[2024-06-03 08:45] VITALS: BP 153/86
[2024-06-03] MEDS ORDERED: ONDANSETRON HCL 4 MG in DEXTROSE 5 % IN WATER 50 ML IV SCH (17:00)
[2024-06-03 19:09] VITALS: BP 146/85; O2SAT 96
[2024-06-03] MEDS ORDERED: FAMOTIDINE/PF 20 MG/2 ML VIAL IV ONE (20:00)
[2024-06-04 00:47] VITALS: BP 133/73; O2SAT 99
[2024-06-04 06:48] LABS: ALBUMIN 2.7 gm/dL (3.4-5.0); CALCIUM 7.6 mg/dL (8.5-10.1); CREATININE SERUM 3.33 mg/dL (0.55-1.02); GFR 13.09
[2024-06-04 07:37] LABS: C-REACTIVE PROTEIN 4.86 MG/DL (0.00-0.29)
[2024-06-04 07:40] LABS: POTASSIUM 2.42 mEq/L (3.5-5.1)
[2024-06-04 07:41] LABS: MAGNESIUM 0.9 mg/dL (1.8-2.4); PHOSPHOROUS 1.5 mg/dL (2.5-4.9)
[2024-06-04 09:18] VITALS: BP 144/76
[2024-06-04] MEDS ORDERED: MAGNESIUM SULFATE IN WATER 4 GM/100 ML PIGGYBACK IV NR (10:00)
[2024-06-04] MEDS ORDERED: POTASSIUM PHOS,M-BASIC-D-BASIC 18 MM in 0.9 % SODIUM CHLORIDE 250 ML IV ONE (11:00)
[2024-06-04 18:57] VITALS: BP 160/85; O2SAT 98
[2024-06-04] MEDS ORDERED: SPIRONOLACTONE 25 MG TABLET PO SCH (19:07)
[2024-06-05 00:36] VITALS: BP 153/70; O2SAT 98
[2024-06-05 09:23] VITALS: BP 139/80; O2SAT 96
[2024-06-05 09:50] LABS: ALBUMIN 2.6 gm/dL (3.4-5.0); CALCIUM 7.7 mg/dL (8.5-10.1); CREATININE SERUM 2.62 mg/dL (0.55-1.02); GFR 17.26
[2024-06-05 09:56] LABS: PHOSPHOROUS 1.9 mg/dL (2.5-4.9); POTASSIUM 2.89 mEq/L (3.5-5.1)
[2024-06-05] MEDS ORDERED: POTASSIUM PHOS,M-BASIC-D-BASIC 3 MM/ML VIAL IV NR (10:15)
[2024-06-05] MEDS ORDERED: POTASSIUM CHLORIDE IN WATER 40 MEQ/100 ML PIGGYBAG IV SCH (13:00)
[2024-06-05] MEDS ORDERED: SODIUM CHLORIDE 0.45 % 1,000 ML IV SCH (16:00)
[2024-06-05 19:40] VITALS: BP 142/80; O2SAT 97
[2024-06-06 01:24] VITALS: BP 139/80; O2SAT 97
[2024-06-06] MEDS ORDERED: BUDESONIDE 0.5 MG/2 ML AMPUL.NEB IH SCH (09:00)
[2024-06-06 09:29] VITALS: BP 145/80; O2SAT 98
[2024-06-06 12:58] LABS: HEMATOCRIT 29.1 % (36.0-45.00); HEMOGLOBIN 10.1 g/dL (12.0-15.00); MEAN CELL VOLUME 83.5 fL (80.00-100.00); MEAN CORPUSCULAR HGB CONC 34.8 g/dl (32.0-36.0); PLATELET COUNT 277 K/uL (150-450); RED BLOOD COUNT 3.49 M/uL (4.00-6.00)
[2024-06-06 13:20] LABS: ALBUMIN 2.8 gm/dL (3.4-5.0); CALCIUM 8.5 mg/dL (8.5-10.1); CREATININE SERUM 2.54 mg/dL (0.55-1.02); GFR 17.89; MAGNESIUM 1.9 mg/dL (1.8-2.4); PHOSPHOROUS 3.1 mg/dL (2.5-4.9); POTASSIUM 5.53 mEq/L (3.5-5.1)
[2024-06-06 18:06] VITALS: BP 146/63; O2SAT 97
[2024-06-06] MEDS ORDERED: SIMETHICONE 125 MG CAPSULE PO SCH (21:00)
[2024-06-07 02:52] VITALS: BP 130/74; O2SAT 97
[2024-06-07 08:51] VITALS: BP 138/74; O2SAT 97
[2024-06-07 18:30] VITALS: BP 140/70
[2024-06-08 03:00] VITALS: BP 156/87; O2SAT 97
[2024-06-08 07:45] LABS: CALCIUM 8.7 mg/dL (8.5-10.1); CREATININE SERUM 2.08 mg/dL (0.55-1.02); GFR 22.53; PHOSPHOROUS 2.5 mg/dL (2.5-4.9); POTASSIUM 4.48 mEq/L (3.5-5.1)
[2024-06-08 08:00] LABS: HEMATOCRIT 30.6 % (36.0-45.00); HEMOGLOBIN 10.2 g/dL (12.0-15.00); MEAN CELL VOLUME 85.5 fL (80.00-100.00); MEAN CORPUSCULAR HEMOGLOBIN 28.6 pg (27.00-32.0); MEAN CORPUSCULAR HGB CONC 33.5 g/dl (32.0-36.0); RED BLOOD COUNT 3.58 M/uL (4.00-6.00); RED CELL DISTRIBUTION WIDTH 17.1 % (11.5-14.5)
[2024-06-08 08:14] LABS: MAGNESIUM 1.4 mg/dL (1.8-2.4)
[2024-06-08 08:18] LABS: PLATELET COUNT 298 K/uL (150-450)
[2024-06-08 10:40] VITALS: BP 114/83; O2SAT 98
[2024-06-08] MEDS ORDERED: MAGNESIUM SULFATE IN WATER 50 ML IV NR (11:00)
[2024-06-08 17:53] VITALS: BP 141/70
[2024-06-09 02:29] VITALS: BP 142/81; O2SAT 97
[2024-06-09 07:10] LABS: HEMATOCRIT 30.4 % (36.0-45.00); MEAN CELL VOLUME 85.2 fL (80.00-100.00); MEAN CORPUSCULAR HEMOGLOBIN 28.2 pg (27.00-32.0); MEAN CORPUSCULAR HGB CONC 33.1 g/dl (32.0-36.0); PLATELET COUNT 290 K/uL (150-450); RED BLOOD COUNT 3.56 M/uL (4.00-6.00)
[2024-06-09 07:19] LABS: INR 1.06; PARTIAL THROMBOPLASTIN TIME 28.1 SECONDS (22.0-34.0); PROTHROMBIN TIME 11.5 SECONDS (9.0-11.5)
[2024-06-09 07:48] LABS: ALBUMIN 2.9 gm/dL (3.4-5.0); BILIRUBIN TOTAL 0.45 mg/dL (0.3-1.2); BILIRUBIN,CONJUGATED 0.21 mg/dL (0.0-0.2); BILIRUBIN,UNCONJUGATED 0.24 mg/dL (0.0-0.6); CALCIUM 9.1 mg/dL (8.5-10.1); CHOL HDL RATIO 2.9 (0-5.0); CREATININE SERUM 1.92 mg/dL (0.55-1.02); GFR 24.7; GLOBULINA 3.6 G/DL (2.4-3.5); MAGNESIUM 2.1 mg/dL (1.8-2.4); POTASSIUM 4.61 mEq/L (3.5-5.1); TOTAL PROTEIN 6.5 gm/dL (6.4-8.2)
[2024-06-09 09:36] VITALS: BP 129/73; O2SAT 98
[2024-06-09 11:24] LABS: UREA CLEARANCE 0.3 ML/MIN
[2024-06-09] MEDS ORDERED: PIPERACILLIN/TAZOBACTAM SODIUM 2.25 GM VIAL IV SCH (17:00)
[2024-06-09 18:38] VITALS: BP 148/79
[2024-06-09] MEDS ORDERED: BUPIVACAINE HCL 30 ML VIAL IJ ONE (22:00)
[2024-06-09] MEDS ORDERED: IOVERSOL 320 MG/ML - 50 ML VIAL IV ONE (22:00)
[2024-06-09] MEDS ORDERED: DIPHENHYDRAMINE HCL 50 MG/ML VIAL 1ML IV ONE (22:00)
[2024-06-10 02:18] VITALS: BP 156/80; O2SAT 96
[2024-06-10 10:26] VITALS: BP 138/85; O2SAT 96
[2024-06-10] MEDS ORDERED: VITAMIN B COMPLEX/LYSINE 1 ML ML PO SCH (13:00)
[2024-06-10] MEDS ORDERED: ONDANSETRON HCL 4 MG in DEXTROSE 5 % IN WATER 50 ML IV SCH (17:00)
[2024-06-10 18:39] VITALS: BP 130/76; O2SAT 98
[2024-06-11 00:56] VITALS: BP 118/77; O2SAT 98
[2024-06-11 08:32] LABS: BILIRUBIN TOTAL 0.54 mg/dL (0.3-1.2); CALCIUM 9.1 mg/dL (8.5-10.1); CREATININE SERUM 1.92 mg/dL (0.55-1.02); GFR 24.7; GLOBULINA 3.7 G/DL (2.4-3.5); POTASSIUM 4.21 mEq/L (3.5-5.1); TOTAL PROTEIN 6.7 gm/dL (6.4-8.2)
[2024-06-11] MEDS ORDERED: LEVALBUTEROL HCL 0.63 MG/3 ML SOLUTION IH SCH (09:00)
[2024-06-11 10:25] VITALS: BP 129/74; O2SAT 97
[2024-06-11 18:35] VITALS: BP 117/72; O2SAT 99
[2024-06-12 01:43] VITALS: BP 137/82; O2SAT 96
[2024-06-12 09:08] VITALS: BP 126/78
[2024-06-12 19:22] VITALS: BP 120/73; O2SAT 97
[2024-06-13 02:01] VITALS: BP 152/83; O2SAT 98
[2024-06-13 09:47] VITALS: BP 126/66; O2SAT 96
[2024-06-13] MEDS ORDERED: CEFTRIAXONE SODIUM 1,000 MG VIAL IV NR (12:00)
[2024-06-13 18:57] VITALS: BP 1127/73; O2SAT 99
[2024-06-14] MEDS ORDERED: CEFTRIAXONE SODIUM 1,000 MG VIAL IV SCH (09:00)
[2024-06-14 09:35] VITALS: BP 134/74; O2SAT 100
[2024-06-14 10:46] LABS: ALBUMIN 3.1 gm/dL (3.4-5.0); BILIRUBIN TOTAL 0.46 mg/dL (0.3-1.2); CALCIUM 9.8 mg/dL (8.5-10.1); CREATININE SERUM 1.71 mg/dL (0.55-1.02); GFR 28.24; GLOBULINA 4.2 G/DL (2.4-3.5); POTASSIUM 4.39 mEq/L (3.5-5.1); TOTAL PROTEIN 7.3 gm/dL (6.4-8.2)
[2024-06-14 13:14] LABS: INR 1.1; PARTIAL THROMBOPLASTIN TIME 20.9 SECONDS (22.0-34.0); PROTHROMBIN TIME 11.9 SECONDS (9.0-11.5)
[2024-06-14 14:26] LABS: HEMATOCRIT 32.8 % (36.0-45.00); HEMOGLOBIN 10.6 g/dL (12.0-15.00); MEAN CELL VOLUME 88.5 fL (80.00-100.00); MEAN CORPUSCULAR HEMOGLOBIN 28.5 pg (27.00-32.0); MEAN CORPUSCULAR HGB CONC 32.2 g/dl (32.0-36.0); PLATELET COUNT 279 K/uL (150-450); RED BLOOD COUNT 3.71 M/uL (4.00-6.00); RED CELL DISTRIBUTION WIDTH 17.8 % (11.5-14.5)
[2024-06-14 18:28] VITALS: BP 143/75; O2SAT 97
[2024-06-15 00:20] VITALS: BP 139/80
[2024-06-15 08:00] VITALS: BP 136/81
[2024-06-15] MEDS ORDERED: VANCOMYCIN HCL 125 MG/7.5 ML BLIST.PACK PO SCH (13:00)
[2024-06-15 18:44] VITALS: BP 147/82; O2SAT 97
[2024-06-15] MEDS ORDERED: SODIUM BICARBONATE 1 MEQ/ML DISP.SYRIN 50ML IV SCH (21:00)
[2024-06-16 00:44] VITALS: BP 119/72
[2024-06-16 09:21] LABS: HEMATOCRIT 30.7 % (36.0-45.00); HEMOGLOBIN 10.3 g/dL (12.0-15.00); MEAN CELL VOLUME 85.8 fL (80.00-100.00); MEAN CORPUSCULAR HEMOGLOBIN 28.9 pg (27.00-32.0); MEAN CORPUSCULAR HGB CONC 33.7 g/dl (32.0-36.0); PLATELET COUNT 258 K/uL (150-450); RED BLOOD COUNT 3.57 M/uL (4.00-6.00); RED CELL DISTRIBUTION WIDTH 17.2 % (11.5-14.5)
[2024-06-16 09:42] LABS: INR 1.08; PARTIAL THROMBOPLASTIN TIME 28.1 SECONDS (22.0-34.0); PROTHROMBIN TIME 11.7 SECONDS (9.0-11.5)
[2024-06-16 10:11] LABS: ALBUMIN 3.2 gm/dL (3.4-5.0); BILIRUBIN TOTAL 0.39 mg/dL (0.3-1.2); BILIRUBIN,CONJUGATED 0.15 mg/dL (0.0-0.2); BILIRUBIN,UNCONJUGATED 0.24 mg/dL (0.0-0.6); CALCIUM 9.9 mg/dL (8.5-10.1); CHOL HDL RATIO 3.1 (0-5.0); CREATININE SERUM 1.79 mg/dL (0.55-1.02); GFR 26.79; GLOBULINA 3.8 G/DL (2.4-3.5); MAGNESIUM 1.5 mg/dL (1.8-2.4); PHOSPHOROUS 2.3 mg/dL (2.5-4.9); POTASSIUM 3.18 mEq/L (3.5-5.1)
[2024-06-16 10:41] VITALS: BP 117/69; O2SAT 99
[2024-06-16 12:19] LABS: BLOOD UREA NITROGEN 65 mg/dL (7-18)
[2024-06-16] MEDS ORDERED: SODIUM BICARBONATE 50MEQ/50ML VIAL IV SCH (13:00)
[2024-06-16] MEDS ORDERED: MAGNESIUM SULFATE IN WATER 4GM/50ML PIGGYBAG IV ONE (18:00)
[2024-06-16] MEDS ORDERED: POTASSIUM CHLORIDE IN WATER 100 ML IV ONE (18:00)
[2024-06-16] MEDS ORDERED: POTASSIUM PHOS,M-BASIC-D-BASIC 18 MM in 0.9 % SODIUM CHLORIDE 250 ML IV ONE (18:00)
[2024-06-16 18:03] VITALS: BP 137/74
[2024-06-17 03:16] VITALS: BP 121/65; O2SAT 97
[2024-06-17 08:34] VITALS: BP 139/71; O2SAT 96
[2024-06-17 19:45] VITALS: BP 138/68
[2024-06-18 02:21] VITALS: BP 132/79; O2SAT 95
[2024-06-18 07:35] LABS: ALBUMIN 3.1 gm/dL (3.4-5.0); BILIRUBIN TOTAL 0.35 mg/dL (0.3-1.2); CALCIUM 10.1 mg/dL (8.5-10.1); CREATININE SERUM 1.8 mg/dL (0.55-1.02); GFR 26.61; GLOBULINA 3.7 G/DL (2.4-3.5); MAGNESIUM 1.6 mg/dL (1.8-2.4); PHOSPHOROUS 3.2 mg/dL (2.5-4.9); POTASSIUM 3.69 mEq/L (3.5-5.1); TOTAL PROTEIN 6.8 gm/dL (6.4-8.2)
[2024-06-18] MEDS ORDERED: VITAMIN B COMPLEX/LYSINE 15 ML BLIST.PACK PO SCH (09:00)
[2024-06-18 09:35] VITALS: BP 121/76; O2SAT 96
[2024-06-18] MEDS ORDERED: APETIGEN P12.5 MG/15 PO (10:59)
[2024-06-18] MEDS ORDERED: MYCELEX PO (10:59)
[2024-06-18] MEDS ORDERED: VANCOMYCIN HCL1 GM PO (10:59)
[2024-06-18] MEDS ORDERED: INTESTINEX680 M1 PO (10:59)
[2024-06-18] MEDS ORDERED: SODIUM BICARBONATE 50MEQ/50ML VIAL IV NR (12:00)
[2024-06-18] MEDS ORDERED: SODIUM BICARBONATE 50MEQ/50ML VIAL IV SCH (21:00)
== END 2024-06-18 15:23 | disposition home or self-care (01) | DRG 689 ==
LOC: ER 11:59 → MEDI 20:28 → MEDJ 20:28 → MEDI 05-26 01:50 → MEDJ 05-29 22:09
PROVIDERS: General Practice; Internal Medicine; Internal Medicine Geriatric Medicine; Internal Medicine Hematology & Oncology; Internal Medicine Infectious Disease; Internal Medicine Nephrology; Radiology Vascular & Interventional Radiology; Urology; ADMIT Internal Medicine; ATTEND Internal Medicine
PROC: BW21ZZZ Computerized Tomography (CT Scan) of Abdomen and Pelvis (ICD-10-PCS; 2024-05-21)
PROC: 02HV33Z Insertion of Infusion Device into Superior Vena Cava, Percutaneous Approach (ICD-10-PCS; 2024-05-24)
PROC: BW21ZZZ Computerized Tomography (CT Scan) of Abdomen and Pelvis (ICD-10-PCS; 2024-05-26)
PROC: 0T9330Z Drainage of Right Kidney Pelvis with Drainage Device, Percutaneous Approach (ICD-10-PCS; 2024-05-27)
PROC: BW40ZZZ Ultrasonography of Abdomen (ICD-10-PCS; 2024-05-27)
PROC: 30233N1 Transfusion of Nonautologous Red Blood Cells into Peripheral Vein, Percutaneous Approach (ICD-10-PCS; 2024-05-27)
PROC: 0T9430Z Drainage of Left Kidney Pelvis with Drainage Device, Percutaneous Approach (ICD-10-PCS; principal; 2024-05-27 12:30)
PROC: 0T25X0Z Change Drainage Device in Kidney, External Approach (ICD-10-PCS; 2024-05-28)
PROC: 05HM33Z Insertion of Infusion Device into Right Internal Jugular Vein, Percutaneous Approach (ICD-10-PCS; 2024-05-29)
PROC: 5A1D70Z Performance of Urinary Filtration, Intermittent, Less than 6 Hours Per Day (ICD-10-PCS; 2024-05-30)
PROC: 0T9430Z Drainage of Left Kidney Pelvis with Drainage Device, Percutaneous Approach (ICD-10-PCS; 2024-06-09)
PROC: BW40ZZZ Ultrasonography of Abdomen (ICD-10-PCS; 2024-06-09)
PROC: BW21ZZZ Computerized Tomography (CT Scan) of Abdomen and Pelvis (ICD-10-PCS; 2024-06-10)
PROC: CT131ZZ Planar Nuclear Medicine Imaging of Kidneys, Ureters and Bladder using Technetium 99m (Tc-99m) (ICD-10-PCS; 2024-06-10)
PROC: CF1C1ZZ Planar Nuclear Medicine Imaging of Hepatobiliary System, All using Technetium 99m (Tc-99m) (ICD-10-PCS; 2024-06-13)
PROC: BT43ZZZ Ultrasonography of Bilateral Kidneys (ICD-10-PCS; 2024-06-16)
DX: N39.0 Urinary tract infection, site not specified (principal); K68.2 Retroperitoneal fibrosis; N17.9 Acute kidney failure, unspecified; E87.0 Hyperosmolality and hypernatremia; K80.20 Calculus of gallbladder without cholecystitis without obstruction; N13.9 Obstructive and reflux uropathy, unspecified; B96.5 Pseudomonas (aeruginosa) (mallei) (pseudomallei) as the cause of diseases classified elsewhere; B95.2 Enterococcus as the cause of diseases classified elsewhere; E78.5 Hyperlipidemia, unspecified; I12.9 Hypertensive chronic kidney disease with stage 1 through stage 4 chronic kidney disease, or unspecified chronic kidney disease; N18.2 Chronic kidney disease, stage 2 (mild); D63.1 Anemia in chronic kidney disease; E87.5 Hyperkalemia; D69.6 Thrombocytopenia, unspecified; N99.522 Malfunction of incontinent external stoma of urinary tract; F03.90 Unspecified dementia, unspecified severity, without behavioral disturbance, psychotic disturbance, mood disturbance, and anxiety

== ENCOUNTER 2024-07-07 14:49 | Inpatient (IN) | payer OTHER ==
[~2024-07-07] VITALS: Ht 152.4 cm; Wt 60.8 kg
[~2024-07-07 14:49] MED LIST changes: +APETIGEN P12.5 MG/15 PO; +INTESTINEX680 M1 PO; +MYCELEX PO; +VANCOMYCIN HCL1 GM PO
--- NOTE | 2024-07-07 15:54 | NUR ---
SE RECIBE PTE ALERTA Y ORIENTADA X3 JUNTO A FAMILIAR EL CUAL REFIERE QUE HACE [address] COREEN LE REALIZO NEFROSTOMIA EN AMBOS LADOS Y DE EL LADO PIEDAD ESTA TAPADO Y DESDE ENTONCES PRESENTA FIEBRE EN EL HOGAR. EL MISMO REFIERE QUE LE BRINDO MEDICACION A LAS 12PM PARA LA MISMA, AL MOMENTO NO PRESENTA FIEBRE. PACIENTE REFIERE DOLOR EN EL AREA AFECTADA.
[2024-07-07] MEDS ORDERED: CEFTRIAXONE SODIUM 2,000 MG VIAL IV ONE (16:30)
[2024-07-07] MEDS ORDERED: 0.9 % SODIUM CHLORIDE 1,000 ML IV SCH ×2 (16:30→21:00)
--- NOTE | 2024-07-07 17:57 | NUR ---
SE ORIENTA PTE SOBRE TX A SEGUIR, LA MISMA REFIERE ENTENDER.S E CHARLES MUESTRA DE LAB, SE CANALIZA Y SE ADMINISTRA MED SERGIO ORDEN MED
[2024-07-07 18:01] LABS: HEMATOCRIT 38.6 % (36.0-45.00); HEMOGLOBIN 12.5 g/dL (12.0-15.00); MEAN CELL VOLUME 88.3 fL (80.00-100.00); MEAN CORPUSCULAR HEMOGLOBIN 28.6 pg (27.00-32.0); MEAN CORPUSCULAR HGB CONC 32.4 g/dl (32.0-36.0); PLATELET COUNT 260 K/uL (150-450); RED BLOOD COUNT 4.37 M/uL (4.00-6.00); RED CELL DISTRIBUTION WIDTH 16.9 % (11.5-14.5)
[2024-07-07 18:10] LABS: ALBUMIN 3.5 gm/dL (3.4-5.0); BILIRUBIN TOTAL 0.73 mg/dL (0.3-1.2); CALCIUM 10.1 mg/dL (8.5-10.1); CREATININE SERUM 2.14 mg/dL (0.55-1.02); GFR 21.8; GLOBULINA 4.3 G/DL (2.4-3.5); POTASSIUM 4.32 mEq/L (3.5-5.1); TOTAL PROTEIN 7.8 gm/dL (6.4-8.2)
[2024-07-07 18:16] LABS: PH,URINE 5.5 (5.0-8.0); URINE APPEARANCE Turbid; URINE BILIRRUBIN Negative (NEGATIVE); URINE BLOOD Large; URINE COLOR Orange; URINE GLUCOSE Negative (NEGATIVE); URINE KETONE 15 (NEGATIVE); URINE LEUKOCYTE Large; URINE NITRATE Negative
[2024-07-07 18:20] LABS: URINE CAST 18.67 uL (0.0-1.40); URINE WBC 2038.9 uL (0.0-23.2)
[2024-07-07 18:42] LABS: URINE BACTERIA > 9821.5 uL (0.0-1933); URINE PROTEIN 300 (NEGATIVE); URINE RBC > 10558.9 uL (0.0-20.8)
[2024-07-07] MEDS ORDERED: ACETAMINOPHEN 500 MG GEL..CAP PO PRN (21:00)
[2024-07-08 03:29] LABS: INR 1.18; PARTIAL THROMBOPLASTIN TIME 31.6 SECONDS (22.0-34.0); PROTHROMBIN TIME 12.7 SECONDS (9.0-11.5)
[2024-07-08 08:11] VITALS: BP 112/62; O2SAT 99
[2024-07-08] MEDS ORDERED: CEFTRIAXONE SODIUM 2,000 MG in 0.9 % SODIUM CHLORIDE 100 ML IV SCH (09:00)
[2024-07-08] MEDS ORDERED: TAMSULOSIN HCL 0.4 MG CAP PO SCH (09:00)
[2024-07-08] MEDS ORDERED: FAMOTIDINE/PF 20 MG in 0.9 % SODIUM CHLORIDE 8 ML IV PUSH SCH (09:00)
[2024-07-08] MEDS ORDERED: IRON FUM,PS/FOLIC/BCOMP,C NO.9 1 CAP CAPSULE PO SCH (09:00)
[2024-07-08] MEDS ORDERED: VITAMIN B COMPLEX/LYSINE 1 ML ML PO SCH (09:00)
[2024-07-08] MEDS ORDERED: ENOXAPARIN SODIUM 30 MG/0.3 ML SYRINGE SUBCUTANEO SCH (09:00)
[2024-07-08] MEDS ORDERED: AMLODIPINE BESYLATE 5 MG TABLET PO SCH (09:00)
[2024-07-08] MEDS ORDERED: MEROPENEM 1,000 MG VIAL IV STA (09:52)
[2024-07-08 14:58] VITALS: BP 131/73; O2SAT 99
[2024-07-08] MEDS ORDERED: LACTOBACILLUS ACIDOPHILUS 1 CAP CAP PO SCH (17:00)
[2024-07-08 17:41] VITALS: BP 122/74
[2024-07-08] MEDS ORDERED: MEROPENEM 500 MG/VIAL VIAL IV SCH (21:00)
[2024-07-09 01:56] VITALS: BP 99/61; O2SAT 97
[2024-07-09 08:52] VITALS: BP 102/61; O2SAT 95
[2024-07-09 19:07] VITALS: BP 104/69
[2024-07-10 02:41] VITALS: BP 102/59; O2SAT 97
[2024-07-10 06:08] LABS: HEMATOCRIT 30.3 % (36.0-45.00); HEMOGLOBIN 10.1 g/dL (12.0-15.00); MEAN CELL VOLUME 88.8 fL (80.00-100.00); MEAN CORPUSCULAR HEMOGLOBIN 29.5 pg (27.00-32.0); MEAN CORPUSCULAR HGB CONC 33.3 g/dl (32.0-36.0); PLATELET COUNT 214 K/uL (150-450); RED BLOOD COUNT 3.42 M/uL (4.00-6.00); RED CELL DISTRIBUTION WIDTH 16.4 % (11.5-14.5)
[2024-07-10 06:24] LABS: ERYTHROCYTE SEDIMENTATION RATE 62 mm/hr
[2024-07-10 06:43] LABS: ALBUMIN 2.3 gm/dL (3.4-5.0); BILIRUBIN TOTAL 0.28 mg/dL (0.3-1.2); CALCIUM 8.7 mg/dL (8.5-10.1); CREATININE SERUM 1.91 mg/dL (0.55-1.02); GFR 24.85; GLOBULINA 2.8 G/DL (2.4-3.5); POTASSIUM 3.94 mEq/L (3.5-5.1); TOTAL PROTEIN 5.1 gm/dL (6.4-8.2)
[2024-07-10 06:44] LABS: C-REACTIVE PROTEIN 8.64 MG/DL (0.00-0.29)
[2024-07-10 08:58] VITALS: BP 124/70; O2SAT 98
[2024-07-10 18:16] VITALS: BP 127/72; O2SAT 98
[2024-07-11 02:46] VITALS: BP 123/67; O2SAT 98
[2024-07-11 10:09] VITALS: BP 100/48; O2SAT 95
[2024-07-11 17:48] VITALS: BP 134/76
[2024-07-12 02:15] VITALS: BP 137/80; O2SAT 97
[2024-07-12 09:33] VITALS: BP 130/88; O2SAT 97
[2024-07-12 10:12] LABS: PH,URINE 7.5 (5.0-8.0); URINE APPEARANCE Cloudy; URINE BILIRRUBIN Negative (NEGATIVE); URINE BLOOD Large; URINE COLOR Yellow; URINE GLUCOSE Negative (NEGATIVE); URINE KETONE Negative (NEGATIVE); URINE LEUKOCYTE Moderate; URINE NITRATE Negative; URINE UROBILINOGEN 0.2 E.U./dl
[2024-07-12 10:16] LABS: URINE BACTERIA 2195.8 uL (0.0-1933); URINE CAST 1.61 uL (0.0-1.40); URINE EPITHELIAL CELLS 81.5 uL (0.0-38.8); URINE RBC 2093.3 uL (0.0-20.8); URINE WBC 806.8 uL (0.0-23.2)
[2024-07-12 10:59] LABS: URINE PROTEIN 300 (NEGATIVE)
[2024-07-12 18:42] VITALS: BP 101/62; O2SAT 98
[2024-07-13 01:45] VITALS: BP 145/65; O2SAT 98
[2024-07-13 07:39] LABS: ALBUMIN 2.4 gm/dL (3.4-5.0); BILIRUBIN TOTAL 0.24 mg/dL (0.3-1.2); CALCIUM 8.4 mg/dL (8.5-10.1); CREATININE SERUM 1.46 mg/dL (0.55-1.02); GFR 33.89; GLOBULINA 2.8 G/DL (2.4-3.5); POTASSIUM 4.14 mEq/L (3.5-5.1); TOTAL PROTEIN 5.2 gm/dL (6.4-8.2)
[2024-07-13 08:57] VITALS: BP 102/62; O2SAT 98
[2024-07-13 16:42] VITALS: BP 140/80; O2SAT 97
[2024-07-14 01:13] VITALS: BP 106/66; O2SAT 97
[2024-07-14 08:55] VITALS: BP 121/73; O2SAT 99
[2024-07-14] MEDS ORDERED: INTESTINEX680 M2 PO (17:25)
[2024-07-14] MEDS ORDERED: LEVOFLOXACIN250 MG PO (17:25)
[2024-07-14 17:43] VITALS: BP 126/71; O2SAT 96
== END 2024-07-14 18:09 | disposition home or self-care (01) | DRG 872 ==
LOC: ER 14:52 → MEDJ 22:53 → SEC-K 22:53 → MEDJ 07-08 11:25
PROVIDERS: General Practice; Internal Medicine; Internal Medicine Infectious Disease; ADMIT Internal Medicine; ATTEND Internal Medicine
PROC: BW21ZZZ Computerized Tomography (CT Scan) of Abdomen and Pelvis (ICD-10-PCS; principal; 2024-07-07)
DX: A41.9 Sepsis, unspecified organism (principal); N39.0 Urinary tract infection, site not specified; N17.9 Acute kidney failure, unspecified; T83.098A Other mechanical complication of other urinary catheter, initial encounter; R65.10 Systemic inflammatory response syndrome (SIRS) of non-infectious origin without acute organ dysfunction

== ENCOUNTER 2024-08-01 11:53 | Inpatient (IN) | payer OTHER ==
[~2024-08-01] VITALS: Ht 152.4 cm; Wt 62.6 kg
[~2024-08-01 11:53] MED LIST changes: +INTESTINEX680 M2 PO; +LEVOFLOXACIN250 MG PO
--- NOTE | 2024-08-01 12:50 | NUR ---
PTE REFIEFE POR ROSS MEDICO PRIMARIO PARA LA SHAHNAZ DE EMERGENCIA POR DOLOR ABDOMINAL Y VOMITOS. SE LE CHARLES S/V YSE UBICA EN MATTHEW.
[2024-08-01] MEDS ORDERED: FAMOtidine 10 MG/ML (4ML VIAL) IV ONE (14:00)
[2024-08-01] MEDS ORDERED: PIPERACILLIN/TAZOBACTAM SODIUM 3.375 GM VIAL IV ONE ×2 (14:00→14:01)
[2024-08-01] MEDS ORDERED: MEPERIDINE HCL/PF 25 MG/ML VIAL IV ONE (14:00)
[2024-08-01] MEDS ORDERED: MORPHINE SULFATE 2 MG/ML SYRINGE IV ONE (14:00)
[2024-08-01] MEDS ORDERED: FAMOTIDINE/PF 20 MG/2 ML VIAL ONE (14:01)
--- NOTE | 2024-08-01 14:15 | NUR ---
SE EDUCA PACIENTE SOBR EEL TX MEDICO Y ESTA REFIERE ENTENDER. SE CANALIZA Y SE ADMINITRA MEDICAMENTOS SERGIO ORDEN MEDICA. SE THOMPSON MUESTRAS DE LABORTORIOS Y SE ENVIAN. SE REALIZA EKG Y SE ENTREGA ENVASE DE U/A
[2024-08-01 14:20] LABS: HEMATOCRIT 34.6 % (36.0-45.00); MEAN CELL VOLUME 87.6 fL (80.00-100.00); MEAN CORPUSCULAR HGB CONC 32.9 g/dl (32.0-36.0); PLATELET COUNT 372 K/uL (150-450); RED BLOOD COUNT 3.95 M/uL (4.00-6.00); RED CELL DISTRIBUTION WIDTH 16.6 % (11.5-14.5)
[2024-08-01 14:22] LABS: HEMOGLOBIN 11.4 g/dL (12.0-15.00); MEAN CORPUSCULAR HEMOGLOBIN 28.8 pg (27.00-32.0)
[2024-08-01 15:44] LABS: INR 1.07; PARTIAL THROMBOPLASTIN TIME 27.8 SECONDS (22.0-34.0); PROTHROMBIN TIME 11.6 SECONDS (9.0-11.5)
[2024-08-01 15:45] LABS: ALBUMIN 2.8 gm/dL (3.4-5.0); BILIRUBIN TOTAL 5.32 mg/dL (0.3-1.2); CALCIUM 9.8 mg/dL (8.5-10.1); CREATININE SERUM 1.42 mg/dL (0.55-1.02); GFR 34.99; GLOBULINA 4.2 G/DL (2.4-3.5); POTASSIUM 3.77 mEq/L (3.5-5.1)
[2024-08-01 19:31] LABS: BILIRUBIN TOTAL 4.98 mg/dL (0.3-1.2); BILIRUBIN,CONJUGATED 4.13 mg/dL (0.0-0.2); BILIRUBIN,UNCONJUGATED 0.85 mg/dL (0.0-0.6)
[2024-08-01 20:42] LABS: PH,URINE 6.5 (5.0-8.0); URINE APPEARANCE Turbid; URINE BILIRRUBIN Moderate (NEGATIVE); URINE BLOOD Large; URINE COLOR Orange; URINE GLUCOSE Negative (NEGATIVE); URINE KETONE Negative (NEGATIVE); URINE LEUKOCYTE Large; URINE NITRATE Negative
[2024-08-01 20:47] LABS: URINE CAST 2.43 uL (0.0-1.40); URINE EPITHELIAL CELLS 9.9 uL (0.0-38.8)
[2024-08-01 21:02] LABS: URINE BACTERIA > 9821.5 uL (0.0-1933); URINE CRYSTALS FEW /HPF; URINE PROTEIN 300 (NEGATIVE); URINE RBC > 10558.9 uL (0.0-20.8)
[2024-08-01] MEDS ORDERED: ONDANSETRON HCL 4 MG in 0.9 % SODIUM CHLORIDE 50 ML IV PRN (23:30)
[2024-08-01] MEDS ORDERED: 0.9 % SODIUM CHLORIDE 1,000 ML IV SCH (23:30)
[2024-08-01] MEDS ORDERED: MORPHINE SULFATE 4 MG/ML CARTRIDGE IV PRN (23:45)
[2024-08-02] MEDS ORDERED: PIPERACILLIN/TAZOBACTAM SODIUM 2.25 GM in DEXTROSE 5 % IN WATER 50 ML IV SCH
[2024-08-02 08:35] VITALS: BP 144/91; O2SAT 100
[2024-08-02] MEDS ORDERED: ENOXAPARIN SODIUM 40 MG/0.4 ML SYRINGE SUBCUTANEO SCH (09:00)
[2024-08-02] MEDS ORDERED: ATORVASTATIN CALCIUM 20 MG TABLET PO SCH (09:00)
[2024-08-02] MEDS ORDERED: IRON FUM,PS/FOLIC/BCOMP,C NO.9 1 CAP CAPSULE PO SCH (09:00)
[2024-08-02] MEDS ORDERED: FAMOTIDINE/PF 20 MG in 0.9 % SODIUM CHLORIDE 8 ML IV PUSH SCH (09:00)
[2024-08-02] MEDS ORDERED: AMLODIPINE BESYLATE 2.5 MG TABLET PO SCH (09:00)
[2024-08-02] MEDS ORDERED: AMLODIPINE BESYLATE 5 MG TABLET PO SCH (13:21)
[2024-08-02] MEDS ORDERED: AMINO ACIDS 4.25%/DEXTROSE 10% 1,000 ML CENTRAL SCH (17:00)
[2024-08-02 17:21] VITALS: BP 150/81
[2024-08-03 01:54] VITALS: BP 150/81; O2SAT 98
[2024-08-03 07:43] LABS: HEMATOCRIT 31.1 % (36.0-45.00); HEMOGLOBIN 10.2 g/dL (12.0-15.00); MEAN CELL VOLUME 89.2 fL (80.00-100.00); MEAN CORPUSCULAR HEMOGLOBIN 29.3 pg (27.00-32.0); MEAN CORPUSCULAR HGB CONC 32.9 g/dl (32.0-36.0); PLATELET COUNT 287 K/uL (150-450); RED BLOOD COUNT 3.49 M/uL (4.00-6.00); RED CELL DISTRIBUTION WIDTH 17.1 % (11.5-14.5)
[2024-08-03 08:21] VITALS: BP 139/74
[2024-08-03] MEDS ORDERED: FAMOTIDINE/PF 20 MG/2 ML VIAL ONE (08:35)
[2024-08-03 08:40] LABS: ALBUMIN 2.5 gm/dL (3.4-5.0); BILIRUBIN TOTAL 3.5 mg/dL (0.3-1.2); BILIRUBIN,CONJUGATED 2.87 mg/dL (0.0-0.2); BILIRUBIN,UNCONJUGATED 0.63 mg/dL (0.0-0.6); CALCIUM 9.3 mg/dL (8.5-10.1); CREATININE SERUM 1.39 mg/dL (0.55-1.02); GFR 35.86; MAGNESIUM 2.2 mg/dL (1.8-2.4); POTASSIUM 4.06 mEq/L (3.5-5.1); TOTAL PROTEIN 5.7 gm/dL (6.4-8.2)
[2024-08-03] MEDS ORDERED: ENOXAPARIN SODIUM 30 MG/0.3 ML SYRINGE SUBCUTANEO SCH (09:00)
[2024-08-03 17:04] VITALS: BP 137/92
[2024-08-04 03:07] VITALS: BP 147/73; O2SAT 96
[2024-08-04 06:16] LABS: HEMATOCRIT 29.9 % (36.0-45.00); MEAN CORPUSCULAR HEMOGLOBIN 29.3 pg (27.00-32.0); MEAN CORPUSCULAR HGB CONC 33.3 g/dl (32.0-36.0); PLATELET COUNT 274 K/uL (150-450); RED CELL DISTRIBUTION WIDTH 16.8 % (11.5-14.5)
[2024-08-04 06:35] LABS: INR 1.15; PARTIAL THROMBOPLASTIN TIME 32.5 SECONDS (22.0-34.0); PROTHROMBIN TIME 12.4 SECONDS (9.0-11.5)
[2024-08-04 06:52] LABS: ALBUMIN 2.3 gm/dL (3.4-5.0); BILIRUBIN TOTAL 2.9 mg/dL (0.3-1.2); BILIRUBIN,CONJUGATED 2.35 mg/dL (0.0-0.2); BILIRUBIN,UNCONJUGATED 0.55 mg/dL (0.0-0.6); CALCIUM 8.6 mg/dL (8.5-10.1); CHOL HDL RATIO 5.4 (0-5.0); CREATININE SERUM 1.32 mg/dL (0.55-1.02); GFR 38.07; GLOBULINA 3.2 G/DL (2.4-3.5); MAGNESIUM 1.8 mg/dL (1.8-2.4); POTASSIUM 3.68 mEq/L (3.5-5.1); TOTAL PROTEIN 5.5 gm/dL (6.4-8.2)
[2024-08-04 08:23] VITALS: BP 140/70
[2024-08-04] MEDS ORDERED: MORPHINE SULFATE 2 MG/ML CARTRIDGE IV ONE (08:45)
[2024-08-04 16:18] VITALS: BP 145/82; O2SAT 98
[2024-08-04] MEDS ORDERED: MEPERIDINE HCL/PF 25 MG/ML VIAL IV PRN (17:30)
[2024-08-04] MEDS ORDERED: MORPHINE SULFATE 2 MG/ML SYRINGE IV PRN (17:45)
[2024-08-04] MEDS ORDERED: MORPHINE SULFATE 2 MG/ML CARTRIDGE IV PRN (17:45)
[2024-08-04] MEDS ORDERED: MIDAZOLAM HCL 2 MG/2 ML VIAL IV PUSH ONE (20:45)
[2024-08-04] MEDS ORDERED: fentaNYL CITRATE 50 MCG/ML AMPUL IV PUSH ONE (20:45)
[2024-08-05 03:13] VITALS: BP 121/66; O2SAT 97
[2024-08-05] MEDS ORDERED: FAMOTIDINE/PF 20 MG/2 ML VIAL ONE (08:40)
[2024-08-05 08:42] LABS: UREA CLEARANCE 16.3 ML/MIN
[2024-08-05 09:09] VITALS: BP 130/66; O2SAT 95
[2024-08-05 15:50] VITALS: BP 130/72; O2SAT 98
[2024-08-06 03:15] VITALS: BP 129/66; O2SAT 97
[2024-08-06 10:06] VITALS: BP 115/60; O2SAT 98
[2024-08-06 18:08] VITALS: BP 94/55; O2SAT 97
[2024-08-07 05:36] VITALS: BP 95/65; O2SAT 95
[2024-08-07] MEDS ORDERED: Cyanocobalamin/Mecobalamin 1 TAB.SL SL SCH (09:49)
[2024-08-07 09:56] VITALS: BP 152/130; O2SAT 95
[2024-08-07] MEDS ORDERED: SOD FERRIC GLUC COMPLX/SUCROSE 62.5 MG/5 ML AMPUL IV SCH (10:00)
[2024-08-07] MEDS ORDERED: Neurin-Sl Tablet Sl SL (16:32)
[2024-08-07] MEDS ORDERED: FERRLECIT62.5 MG/2 IV (16:32)
[2024-08-07] MEDS ORDERED: INTEGRA PLUS C1 EACH PO (16:32)
[2024-08-07] MEDS ORDERED: FENTANYL1 EAC3 TD (16:32)
[2024-08-07] MEDS ORDERED: LOVENOX30 MG/0.3 SUBCUTANEO (16:32)
[2024-08-07] MEDS ORDERED: fentaNYL 12 MCG PATCH.TD72 TD SCH (18:30)
[2024-08-07 18:41] VITALS: BP 82/46; O2SAT 100
[2024-08-09 06:04] LABS: CA 125 72.1 U/mL (0.0-38.1); CA 15-3 26.9 U/mL (0.0-25.0)
== END 2024-08-07 21:21 | disposition home or self-care (01) | DRG 436 ==
LOC: ER 11:55 → SEC-K 23:36 → MEDI 08-02 01:42
PROVIDERS: General Practice; Internal Medicine Geriatric Medicine; Internal Medicine Hematology & Oncology; ADMIT Internal Medicine; ATTEND Internal Medicine
PROC: BF37ZZZ Magnetic Resonance Imaging (MRI) of Pancreas (ICD-10-PCS; 2024-08-01)
PROC: BW21ZZZ Computerized Tomography (CT Scan) of Abdomen and Pelvis (ICD-10-PCS; 2024-08-01)
PROC: 02HV33Z Insertion of Infusion Device into Superior Vena Cava, Percutaneous Approach (ICD-10-PCS; 2024-08-02)
PROC: 3E0436Z Introduction of Nutritional Substance into Central Vein, Percutaneous Approach (ICD-10-PCS; 2024-08-02)
PROC: 0FB13ZX Excision of Right Lobe Liver, Percutaneous Approach, Diagnostic (ICD-10-PCS; principal; 2024-08-04)
DX: C78.7 Secondary malignant neoplasm of liver and intrahepatic bile duct (principal); C78.6 Secondary malignant neoplasm of retroperitoneum and peritoneum; C79.51 Secondary malignant neoplasm of bone; N39.0 Urinary tract infection, site not specified; K80.20 Calculus of gallbladder without cholecystitis without obstruction; R59.0 Localized enlarged lymph nodes; E86.0 Dehydration; E80.6 Other disorders of bilirubin metabolism; D64.89 Other specified anemias; D63.0 Anemia in neoplastic disease; I10 Essential (primary) hypertension; E78.5 Hyperlipidemia, unspecified; Z93.6 Other artificial openings of urinary tract status